=== PATIENT | male | born 1980 | race Two or more races ===

== ENCOUNTER → 2019-05-11 | Outpatient (CLI) | payer OTHER ==
--- NOTE | 2019-05-11 12:23 | RAD ---
EXAM: Maxillofacial bone CT without contrast. HISTORY: Nasal congestion. TECHNIQUE: Computed tomographic images of the maxillofacial bones were obtained without contrast. *One or more of the following individualized dose reduction techniques were utilized for this examination: 1. Automated exposure control. 2. Adjustment of the mA and/or kV according to patient size. 3. Use of iterative reconstruction technique. COMPARISON: None. FINDINGS: There is minimal right maxillary sinus mucosal thickening. There is attenuation of the right ostiomeatal unit. There is rightward nasal septal deviation. There is no sinus wall thickening or erosion. The orbits and mastoid air cells are unremarkable. The visualized portions of the brain and calvarium are unremarkable. IMPRESSION: 1. Minimal right maxillary sinus because of thickening with attenuation of the right ostiomeatal unit. 2. Rightward nasal septal deviation. Electronically signed by: Sara Stacy MD (05/11/2019 12:19 PM) [facility] [place]
== END | disposition home or self-care (01) ==
LOC: CT 10:30
PROVIDERS: ATTEND Family Medicine
DX: J34.2 Deviated nasal septum (principal); J34.89 Other specified disorders of nose and nasal sinuses
CPT/HCPCS: 70486